=== PATIENT | male | born 1985 | race Caucasian/White ===

== ENCOUNTER 2017-09-13 18:17 | Emergency (ER) | payer MEDICAID, SELFPAY ==
[2017-09-13 18:18] VITALS: BP 122/90; PULSE 82; RESP 16; TEMP 36.7; BMI 20.7
[2017-09-13] MEDS: Fluorescein 1 MG STRIP 1 STRIP RIGHT EYE (21:56)
[2017-09-13] MEDS: Tetracaine 0.5% Ophthalmic Bottle 1 DRP RIGHT EYE (21:56)
--- NOTE | 2017-09-13 21:59 | ED.VISSUMM ---
- ER Visit Summary Date of Service: 09/13/17 Chief Complaint: Foreign body sensation, pain watering History of Present Illness: The patient is a 31 M labeled foreign body sensation in his left eye. He has had prior episodes of this in the past. He has an established relationship with the [facility]. Patient does not wear contacts or glasses. He states this occurred on Monday when it was so much when he thinks some balloon is I. He has had these symptoms for approximately 5-6 days. Physical Examination: Vital signs stable afebrile. Pupils round reactive light. Extra ocular motions are intact. There is focal injection in the left eye. It is watering. There is no discharge. No swelling. Facial swelling. No preauricular lymphadenopathy. No orbital cellulitis. Examination left eye with tetracaine and 4 seen showed an obvious left eye foreign body at 7:00 in the border of the pupil and the iris. There is also small corneal abrasion. No perforation. No signs of infection. Upper and lower lids were unremarkable. Otherwise exam unremarkable. Test Results: None Emergency Department Course and Treatment: Tetracaine instilled his left eye which gave immediate relief. I was able to remove most of the left eye foreign body which appear to be metallic like rust. Treatment Plan: We will follow-up with the [facility] tomorrow is any more foreign body to remove. Bacitracin ophthalmic ointment. Tetracaine only for 1 day for pain. Disposition: Discharge Impression: Left eye corneal abrasion and foreign body removed by ER with residual. This note was generated with thephotocloser.com dictation software. It may contain incorrect words, spelling, and punctuation that were not noted in review of the chart prior to signing ED Disposition - Plan for ED Patient: Chief Complaint: Eye Problem Referrals: Care Physician,No Primary [Primary Care Provider] -
--- NOTE | 2017-09-13 22:05 | ED.DCSUM_ITS ---
- ER Visit Summary Date of Service: 09/13/17 Chief Complaint: Foreign body sensation, pain watering History of Present Illness: The patient is a 31 M labeled foreign body sensation in his left eye. He has had prior episodes of this in the past. He has an established relationship with the [facility]. Patient does not wear contacts or glasses. He states this occurred on Monday when it was so much when he thinks some balloon is I. He has had these symptoms for approximately 5-6 days. Physical Examination: Vital signs stable afebrile. Pupils round reactive light. Extra ocular motions are intact. There is focal injection in the left eye. It is watering. There is no discharge. No swelling. Facial swelling. No preauricular lymphadenopathy. No orbital cellulitis. Examination left eye with tetracaine and 4 seen showed an obvious left eye foreign body at 7:00 in the border of the pupil and the iris. There is also small corneal abrasion. No perforation. No signs of infection. Upper and lower lids were unremarkable. Otherwise exam unremarkable. Test Results: None Emergency Department Course and Treatment: Tetracaine instilled his left eye which gave immediate relief. I was able to remove most of the left eye foreign body which appear to be metallic like rust. Treatment Plan: We will follow-up with the [facility] tomorrow is any more foreign body to remove. Bacitracin ophthalmic ointment. Tetracaine only for 1 day for pain. Disposition: Discharge Impression: Left eye corneal abrasion and foreign body removed by ER with residual. This note was generated with i-drive dictation software. It may contain incorrect words, spelling, and punctuation that were not noted in review of the chart prior to signing ED Disposition - Plan for ED Patient: Chief Complaint: Eye Problem Referrals: Care Physician,No Primary [Primary Care Provider] -
--- NOTE | 2017-09-13 22:05 | ED.DEP ---
ED Disposition - Plan for ED Patient: Disposition: Home or Assisted Living Chief Complaint: Eye Problem Instructions: ED Foreign Body Cornea Referrals: Jerrod Cardona MD [STAFF PHYSICIAN] - As soon as possible Additional Instructions: I ointment 3 times a day. Cool compresses. Sunglasses to prevent glare. Motrin and Tylenol for pain. Use eyedrops prevent pain but only for the next 24 hours. Follow-up with the [facility] tomorrow. There may be some residual rust that still needs to be removed.
[2017-09-13 22:25] VITALS: BP 131/74; PULSE 61; RESP 16; O2SAT 99
== END 2017-09-13 22:25 | disposition home or self-care (01) ==
PROVIDERS: Emergency Provider Emergency Medicine
DX: T15.02XA Foreign body in cornea, left eye, initial encounter (principal); X58.XXXA Exposure to other specified factors, initial encounter; Y93.9 Activity, unspecified; Y92.9 Unspecified place or not applicable; Y99.9 Unspecified external cause status; Z72.0 Tobacco use
CPT/HCPCS: 99283

== ENCOUNTER 2018-11-18 11:27 | Emergency (ER) | payer MEDICAID, SELFPAY ==
[2018-11-18 11:28] VITALS: BP 149/91; PULSE 108; RESP 18; TEMP 36.7; O2SAT 99; BMI 18.8
--- NOTE | 2018-11-18 12:03 | ED.VIS.GEN ---
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 neck discomfort from this, but has had no direct trauma no other complaints no headache no change in vision no neurologic abnormalities the numbness persisted he came in today for evaluation he has no history of GA PE DVT or cardiovascular disorder disease, no history of stroke or seizure Past Medical History - Allergies and Home Meds Allergies/Adverse Reactions: Allergies erythromycin base [Erythromycin Base] Adverse Reaction (Verified 11/18/18 11:30) Vomiting Primary Care Physician: Sahil Wolfe III, MD [STAFF PHYSICIAN] - Sridhar Oconnor MD [STAFF PHYSICIAN] - Care Physician,No Primary [Primary Care Provider] - Past Medical History: None Smoking Status: Heavy Smoker (>10/day) Review of Systems General: Denies: Chills, Fever, Sweats Eyes: Denies: Visual changes - bilaterally, Diplopia ENT: Denies: Rhinorrhea, Sore throat Cardiovascular: Denies: Chest pain, Palpitations Respiratory: Denies: Dyspnea, Cough, Dyspnea on exertion Gastrointestinal: Denies: Abdominal pain, Nausea, Vomiting, Diarrhea, Melena, Hematochezia Genitourinary: Denies: Dysuria, Hematuria, Frequency Musculoskeletal: Denies: Back pain, Extremity Pain Skin: Denies: Rash, Wounds Neurological: Reports: Numbness, - - Planes of numbness that radiates from the mid humeral area mostly into the thumb region. Denies: Headache, Weakness Physical Exam Vital Signs/Narrative: Vital Signs Temp Pulse Resp BP Pulse Ox 11/18/18 11:28 98.1 F 108 H 18 149/91 H 99 General: Well nourished, Well developed, No Acute Distress Head: Normocephalic, Atraumatic Eyes: Perrl, EOMI ENT: Moist mucous membranes, No rhinorrhea Neck: Supple, Nontender Cardiovascular: Regular rate, Regular rhythm, No murmurs Respiratory: No distress, CTA bilaterally, Chest nontender Abdomen: Soft, Nontender, Nondistended, Normal bowel sounds Back: Nontender, Normal Inspection Extremities: Nontender, No edema Skin: Normal color, No rash Neurological: Alert, Oriented x3, Cranial nerves II-XII grossly intact, Normal Strength, Normal Sensation, - - His neurologic exam is unremarkable the left upper extremity has normal range of motion normal strength normal sensation he subjectively complains of a numbness sensation again that begins in the mid humeral area radiates more toward the thumb side of the hand is flexion-extension and 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 order 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 thumb function finger function flexion extension wrist all normal he 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 but he does seem to have a symmetric 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 order 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 strength, neurovascular sensation is intact, pulses capillary refill normal no signs of trauma full range of motion of the extremity to all major joints no signs of any direct trauma or bruising contusion or rash Psychological: Normal affect, Normal Mood Diagnostic/Tx/Re-eval - Medical Decision Making EKG shows a sinus rhythm nothing acute and again he denies any chest pain shortness of breath anginal type symptoms or any cardiovascular symptoms or past history I had a long conversation with the patient his family I explained the differential to him including 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 Oconnor, he is referred back to his primary care physician Dr. Wolfe he will try to avoid any strenuous activity to his body or hand and return for change in symptoms and understands that he needs outpatient management for this condition Disposition Home stable Impression final Numbness involving the left upper extremity mostly radial side ED Disposition - Plan for ED Patient: Diagnosis: Paresthesia and pain of left extremity Instructions: Paraesthesias Prescriptions: Naproxen [Naprosyn] 500 mg PO BID PRN #20 tab Prescription Printed Referrals: Care Physician,No Primary [Primary Care Provider] - Sridhar Oconnor MD [STAFF PHYSICIAN] - Sahil Wolfe III, MD [STAFF PHYSICIAN] -
[2018-11-18 12:28] VITALS: PULSE 102; RESP 18; O2SAT 99
--- NOTE | 2018-11-18 12:37 | EKG12_ITS ---
Test Reason : NUMB/TING Blood Pressure : / mmHG Vent. Rate : 105 BPM Atrial Rate : 105 BPM P-R Int : 128 ms QRS Dur : 088 ms QT Int : 332 ms P-R-T Axes : 074 098 053 degrees QTc Int : 438 ms Sinus tachycardia Rightward axis Borderline ECG Confirmed by SHANE SAMPSON ([id number]), editorial writer MARTELL RAPP ([id number]) on 11/21/2018 1:49:26 PM Referred By: KEATON Confirmed By:SHANE SAMPSON
== END 2018-11-18 12:30 | disposition home or self-care (01) ==
LOC: ED 12:23
PROVIDERS: Emergency Provider Emergency Medicine
DX: R20.0 Anesthesia of skin (principal); M79.622 Pain in left upper arm; F17.200 Nicotine dependence, unspecified, uncomplicated; Z88.1 Allergy status to other antibiotic agents
CPT/HCPCS: 93005; 99282

== ENCOUNTER → 2018-12-11 06:53 | Outpatient (CLI) | payer MEDICAID, SELFPAY ==
[2018-11-18 11:28] VITALS: BMI 18.8
--- NOTE | 2018-12-11 07:20 | MRI_ITS ---
HISTORY: Pain. Left arm numbness and weakness. EXAMINATION: MR Spine Cervical W/O Contrast TECHNIQUE: Routine MRI of the cervical spine was performed. IV Contrast dosage and agent: None. COMPARISON: None FINDINGS: VERTEBRAE: Normal vertebral bodies and posterior elements. VERTEBRAL ALIGNMENT: Normal, including the craniocervical junction and cervicothoracic junction. No spondylolisthesis. There is preservation of the normal cervical lordosis. CORD: Normal signal and morphology. NECK SOFT TISSUES: No prevertebral soft tissue swelling. There is no cervical adenopathy. Normal disc height and morphology throughout the cervical spine. No spinal canal or foraminal narrowing. MRI/Spine Cervical (Routine) IMPRESSION: Normal noncontrast MRI of the cervical spine. No etiology for radiculopathy identified. at 0928 Reported and signed by: Jack Weaver MD Electronically Signed: Jack Weaver, at 9:27 EDT Tel , Service support ,
--- NOTE | 2018-12-11 07:30 | RAD_ITS ---
STUDY: X-RAY - ORBITS REASON FOR EXAM: Male, 33 years old. This study is being performed as a clearance examination for exclusion of orbital metal, prior to the performance of an MRI examination. TECHNIQUE: 2 view(s) of the orbits were obtained. COMPARISON: None. FINDINGS: Normal bilateral orbits without a metallic orbital foreign body. Normal visualized facial bones. Normal paranasal sinuses. The soft tissue structures are unremarkable. RAD/Orbits for Foreign Body IMPRESSION: No demonstrated metallic orbital foreign body. The patient is cleared for an MRI examination. Electronically Signed: Luis Noble, at 7:47 EDT , Service support ,
== END ==
PROVIDERS: Referring Provider Orthopaedic Surgery; Visit Provider Orthopaedic Surgery
DX: M54.2 Cervicalgia (principal)
CPT/HCPCS: 70030; 72141

== ENCOUNTER 2024-05-26 16:09 | Emergency (ER) | payer OTHER, MEDICAID, SELFPAY ==
[2024-05-26] VITALS (9 sets, daily range): BP systolic 145–157; BP diastolic 99–108; PULSE 77–122; RESP 9–18; TEMP 36.2–36.5; O2SAT 98–100; BMI 20.9
--- NOTE | 2024-05-26 16:22 | EX.ED.DYSGE1 ---
HPI History of Present Illness Chief Complaint: Hypertension Informant: patient and spouse/S.O. Onset/Context/Timing Onset: Weeks (1) Context: Gradual Onset Timing: Continuous Quality: Pressure Location: Head Worsened by: Stress Relieved by: Xanax Narrative Narrative: Patient presents with elevated blood pressure that has been constant for the past week. Patient states that he has had pressure in his head, pain in his chest, palpitations, and abdominal pain with this. Patient states he feels shaky at times. Patient states this gets worse with stress. Patient denies any shortness of breath or cough. Patient denies any nausea or vomiting. Patient states he did take one of his 's Xanax tablets which helped calm him down. Patient states that his symptoms returned when this wore off. Patient states he does have a history of panic attacks. [facility] Home Medications ?Medication ?Instructions ?Recorded ?Last Taken ?Type naproxen 500 mg tablet 500 mg PO BID PRN #20 tabs 11/18/18 Unknown Rx Allergy/AdvReac Type Severity Reaction Status Date / Time erythromycin base AdvReac Vomiting Verified 05/26/24 16:10 (Erythromycin Base) Surgical History no surgical history no surgical history Social History (Updated 05/26/24 @ 16:[address] José Orr, DO) Smoking Status: Current every day smoker tobacco type: e-cigarettes Electronic Cigarette Use: with nicotine alcohol intake: current alcohol intake frequency: a few times a week ROS ROS ED Constitutional Constitutional ED: Reports chills and subjective; Denies fever(s) Eyes Eyes: Denies blurry vision or change in vision ENT ENT ED: Denies rhinorrhea or sore throat Cardiovascular Cardiovascular: Reports chest pain and palpitations Respiratory/Chest Respiratory/Chest: Denies cough or dyspnea Gastrointestinal Gastrointestinal: Reports abdominal pain; Denies nausea or vomiting Genitourinary Genitourinary ED: Denies dysuria or hematuria Musculoskeletal Musculoskeletal: Reports neck pain; Denies back pain Integumentary Denies abscess or rash Neurologic Neurologic: Reports headache(s); Denies weakness Psychiatric Psychiatric: Reports anxiety Allergic/Immunologic Allergic/Immunologic ED: Denies mouth swelling or urticaria EXAM Physical Exam Const Vital Signs: 05/26/24 16:10 05/26/24 16:48 05/26/24 16:56 Temperature 97.2 F L Temperature Source Temporal Pulse Rate 122 H 97 Respiratory Rate 18 16 Respiratory Effort Normal Non-Labored Respiratory Pattern Normal Blood Pressure 157/101 H Blood Pressure Mean 119 Pulse Ox 100 99 Oxygen Delivery Method Room Air 05/26/24 17:00 05/26/24 17:09 05/26/24 17:15 Temperature Temperature Source Pulse Rate 82 93 86 Respiratory Rate 13 18 13 Respiratory Effort Respiratory Pattern Blood Pressure 156/103 H 145/108 H 152/101 H Blood Pressure Mean 119 120 117 Pulse Ox 99 99 100 Oxygen Delivery Method 05/26/24 17:15 05/26/24 17:30 05/26/24 17:45 Temperature Temperature Source Pulse Rate 87 89 Respiratory Rate 10 L 13 Respiratory Effort Respiratory Pattern Blood Pressure 152/101 H 145/108 H 154/105 H Blood Pressure Mean 117 120 118 Pulse Ox 99 98 Oxygen Delivery Method 05/26/24 18:00 Temperature Temperature Source Pulse Rate 85 Respiratory Rate 9 L Respiratory Effort Respiratory Pattern Blood Pressure 147/99 H Blood Pressure Mean 112 Pulse Ox 100 Oxygen Delivery Method Positive well nourished and well developed General Appearance ED: well developed and NAD HEENT Reports moist mucous membranes Neck supple and no JVD Resp normal respiratory effort and clear to auscultation bilaterally Cardio regular rate and regular rhythm GI non-distended Palpation: soft and tender RLQ; Negative for guarding or rebound tenderness present Extremity normal to inspection General Extremety ED: Negative for edema or tenderness General Extremity: Negative for edema Neuro oriented x3, CN's II-XII intact bilaterally and no sensory deficits noted Motor Exam: strength 5/5 throughout Psych mental status grossly normal MDM MDM MDM Narrative Medical decision making narrative: Differential diagnosis includes hypertension, anxiety, cardiac dysrhythmia, cardiac ischemia, electrolyte abnormality, and pneumonia. EKG will be obtained to assess for cardiac dysrhythmia and cardiac ischemia. Chest x-ray will be obtained to assess for pneumonia and pneumothorax. CBC will be obtained to assess for leukocytosis and anemia. Basic metabolic profile will be obtained to assess for electrolyte abnormality and renal function. High-sensitivity troponin will be obtained to assess for cardiac ischemia. Lab Data Attestation: I reviewed the patient's lab results. Lab results narrative: CBC was reviewed and was within normal limits. Basic metabolic profile was reviewed and was within normal limits. High-sensitivity troponin was reviewed and was normal. COVID-19 PCR was reviewed and was negative. Influenza PCR was reviewed and was negative for influenza A and influenza B. RSV PCR was reviewed and was negative. Labs: Laboratory Results - last 24 hr 05/26/24 16:44 WBC 8.2 RBC 4.44 L Hgb 13.5 Hct 40.5 MCV 91.2 MCH 30.4 MCHC 33.3 RDW Std Deviation 40.1 RDW Coeff of Jennifer 11.9 Plt Count 364 MPV 9.3 Immature Gran % (Auto) 0.200 Neut % (Auto) 61.6 Lymph % (Auto) 27.0 Sabine % (Auto) 7.3 Eos % (Auto) 2.9 Baso % (Auto) 1.0 Absolute Neuts (auto) 5.1 Absolute Lymphs (auto) 2.22 Nucleated RBC % 0 Sodium 136 Potassium 3.9 Chloride 102 Carbon Dioxide 27.0 Anion Gap 7 BUN 16 Creatinine 0.74 Estim Creat Clear Calc 133.36 Est GFR (MDRD) Af Amer 150 Est GFR (MDRD) Non-Af 124 BUN/Creatinine Ratio 21.5 H Glucose 106 Calcium 9.3 Troponin I High Sens 8 Radiography Chest X-Ray - ED: 2 View, Read by ED Physician, Read by Radiologist and No Acute Disease Diagnostic Testing: Clinical Impression(s) from Imaging Studies Chest X-Ray 05/26/24 17:20 IMPRESSION: No radiographic evidence of acute cardiopulmonary disease. Electronically Signed: Esteban Philippe MD at 17:37 EST Reading Location ID and State: [facility] / [place] , Service support , [place] and lateral chest x-ray was obtained. There are 2 views. On my independent interpretation, lung ch are clear. There is normal cardiac silhouette. Bony thorax is normal. There is no acute process noted. Radiologist also interpreted the x-ray and agrees. EKG Initial EKG: Attestation: I personally reviewed and interpreted this EKG as follows: Interpretation: Sinus Rhythm (88) and No Acute Injury Pattern Comments: EKG was obtained. On my independent interpretation, it showed a normal sinus rhythm with a rate of 88. IN interval, QRS interval, and QTc intervals were all normal. [place] was normal. There are no acute ST or T wave changes. Prior EKG tracings: available for review Prior: Unchanged (11/18/2018) Treatment and Re-Evaluation :: Nicotine cessation was discussed. Patient was advised of his findings. Patient has a HEART score of 1. Patient was advised that this is low risk for acute cardiac event. Patient's blood pressure improved to 147/99. Patient was advised to continue to monitor his blood pressure at home. Patient was instructed to take his log of blood pressures to his primary care physician. Patient was instructed to drink plenty of fluids. Patient was instructed to avoid extra salt. Patient was instructed to return if worse in any way. Patient understood and was agreeable with the plan. All questions were answered. Discharge Plan Triage Chief Complaint: Hypertension Other Complaint: Chest Pain ED Provider: José Orr Dx/Rx/DC Orders Clinical Impression: Elevated blood pressure reading without diagnosis of hypertension, Nicotine vapor product user Instructions: ED Hypertension, To Be Confirmed Prescriptions: No Action naproxen 500 MG tablet 500 mg PO BID PRN Qty: 20 0RF Primary Care Provider: Care Physician,No Primary Referrals: Cameron Tripp DO [Med Staff - Tenant Relations Coordinator] - 3-5 Days Care Physician,No Primary [Primary Care Provider] - Print Language: Qatari Disposition Disposition: Home, Self Care
--- NOTE | 2024-05-26 16:28 | EKG12_ITS ---
Test Reason : Blood Pressure : */* mmHG Vent. Rate : 88 BPM Atrial Rate : 88 BPM P-R Int : 132 ms QRS Dur : 88 ms QT Int : 348 ms P-R-T Axes : 71 87 68 degrees QTcB Int : 421 ms Normal sinus rhythm Normal ECG Confirmed by JUNI GATES, STORMY ([id number]), associate entertainment editor SAMANTHA JOHNSTON ([id number]) on 05/27/2024 11:05:30 AM Referred By: Confirmed By: STORMY ALFREDO MD
[2024-05-26 16:58] LABS: Absolute Lymphocyte Count 2.22 X10^3/uL (0.83-4.51); Absolute Neutrophil Count 5.1 X10^3/uL (2.0-7.7); Basophil# 0.08 X10^3/uL; Eosinophil# 0.24 X10^3/uL; Eosinophils% 2.9 % (0-5); Hematocrit 40.5 % (40-54); Hemoglobin 13.5 g/dL (13.0-16.5); Lymphocyte # 2.22 X10^3/ul (0.83-4.51); Mean Corp Hgb Conc 33.3 g/dL (32-36); Mean Corpuscular Hgb 30.4 pg (27.0-32.0); Mean Corpuscular Volume 91.2 fL (80-94); Mean Platelet Vol. 9.3 fl (6.2-12.0); Monocyte% 7.3 % (0-10); NRBC Flagged by Analyzer 0 % (0-5); Neutrophil # 5.07 X10^3/uL (2.7-7.7); Neutrophil % 61.6 % (47-70); Platelet Count 364 K/mm3 (150-450); RBC Distribution Width CV 11.9 % (11.6-14.6); RBC Distribution Width SD 40.1 fl (35.1-43.9); Red Blood Count 4.44 M/mm3 (4.6-6.2); White Blood Count 8.2 K/mm3 (4.4-11.0)
--- NOTE | 2024-05-26 17:20 | RAD_ITS ---
EXAM: XR CHEST, 2 VIEWS CLINICAL INDICATION: Hypertension TECHNIQUE: Frontal and lateral views of the chest. COMPARISON: No relevant prior studies available. FINDINGS: LUNGS AND PLEURAL SPACES: Unremarkable. No consolidation or edema. No pneumothorax. No effusion. HEART: Unremarkable. Cardiac silhouette not enlarged. MEDIASTINUM: Central airways and mediastinal contour are unremarkable. BONES/JOINTS: Unremarkable. No acute fracture. SOFT TISSUES: Unremarkable. RAD/Chest PA and Lateral IMPRESSION: No radiographic evidence of acute cardiopulmonary disease. Electronically Signed: Esteban Philippe MD at 17:37 EST ,
[2024-05-26 17:21] LABS: Anion Gap 7 (5-15); BUN 16 mg/dL (7-18); BUN/Creat Ratio 21.5 RATIO (10-20); Calcium,Total 9.3 mg/dL (8.5-10.1); Chloride 102 mmol/L (98-107); Creatinine, Serum 0.74 mg/dL (0.70-1.30); EST Glomerular Filtration Rate 124 mL/min (>60); Est Glom Filt Rate - Afr Amer 150 mL/min (>60); Estimated Creatinine Clearance 133.36 ml/min; Glucose 106 mg/dL (74-106); Potassium 3.9 mmol/L (3.5-5.1); Sodium Level 136 mmol/L (136-145); Troponin-I HS 8 pg/mL (3.0-78.0)
== END 2024-05-26 18:16 | disposition home or self-care (01) ==
PROVIDERS: Emergency Provider Emergency Medicine; Visit Provider Emergency Medicine
DX: R03.0 Elevated blood-pressure reading, without diagnosis of hypertension (principal); Z11.52 Encounter for screening for COVID-19; R10.9 Unspecified abdominal pain; M54.2 Cervicalgia; R00.2 Palpitations; R51.9 Headache, unspecified; F17.290 Nicotine dependence, other tobacco product, uncomplicated
CPT/HCPCS: 71046; 80048; 84484; 85025; 87631; 93005; 99284; A4216

== ENCOUNTER → 2024-06-03 | Outpatient (CLI) | payer OTHER, SELFPAY ==
[2024-06-03 08:57] LABS: Absolute Lymphocyte Count 1.65 X10^3/uL (0.83-4.51); Basophil# 0.06 X10^3/uL; Basophil% 1.1 % (0-1); Eosinophils% 3.6 % (0-5); Hematocrit 42.1 % (40-54); Hemoglobin 14.2 g/dL (13.0-16.5); Lymphocyte # 1.65 X10^3/ul (0.83-4.51); Lymphocyte % 29.4 % (19-41); Mean Corp Hgb Conc 33.7 g/dL (32-36); Mean Corpuscular Hgb 30.8 pg (27.0-32.0); Mean Corpuscular Volume 91.3 fL (80-94); Mean Platelet Vol. 9.3 fl (6.2-12.0); Monocyte# 0.66 X10^3/uL; Monocyte% 11.7 % (0-10); NRBC Flagged by Analyzer 0 % (0-5); Neutrophil # 3.03 X10^3/uL (2.7-7.7); Neutrophil % 53.8 % (47-70); Platelet Count 423 K/mm3 (150-450); RBC Distribution Width CV 11.9 % (11.6-14.6); RBC Distribution Width SD 39.9 fl (35.1-43.9); Red Blood Count 4.61 M/mm3 (4.6-6.2); White Blood Count 5.6 K/mm3 (4.4-11.0)
[2024-06-03 09:21] LABS: Vitamin B12 804 pg/mL (211-911)
[2024-06-03 09:25] LABS: Anion Gap 6 (5-15); BUN 12 mg/dL (7-18); BUN/Creat Ratio 12.1 RATIO (10-20); Calcium,Total 9.2 mg/dL (8.5-10.1); Chloride 103 mmol/L (98-107); Creatinine, Serum 0.99 mg/dL (0.70-1.30); EST Glomerular Filtration Rate 89 mL/min (>60); Est Glom Filt Rate - Afr Amer 108 mL/min (>60); Glucose 108 mg/dL (74-106); Potassium 4.4 mmol/L (3.5-5.1); Sodium Level 134 mmol/L (136-145); Thyroid Stim Hormone (TSH) 0.638 uIU/mL (0.358-3.740)
== END | disposition home or self-care (01) ==
LOC: LAB 08:30
PROVIDERS: PCP Clinical Nurse Specialist Adult Health; Referring Provider Clinical Nurse Specialist Adult Health; Visit Provider Clinical Nurse Specialist Adult Health
DX: R00.0 Tachycardia, unspecified (principal)
CPT/HCPCS: 36415; 80048; 82607; 83036; 83735; 84439; 84443; 85025

== ENCOUNTER → 2025-03-13 | Outpatient (CLI) | payer OTHER, SELFPAY ==
--- NOTE | 2025-03-13 12:09 | ECHOD_ITS ---
Reason For Study Reason For Study: SOB/PALPITATIONS Procedure This was a 2D Doppler, Color Flow transthoracic echocardiogram. The study was technically difficult. Exam performed in department. Left Ventricle Normal LV size. Left ventricular systolic function is normal. The left ventricular ejection fraction is 60 %. No regional wall motion abnormalities noted. Right Ventricle Normal RV size. Normal systolic function. Atria Normal left atrium. Normal right atrium. Mitral Valve Normal mitral valve. Tricuspid Valve Normal tricuspid valve. Aortic Valve Normal aortic valve. Trisinus/trileaflet aortic valve. Pulmonic Valve Normal pulmonic valve. Great Vessels Normal aortic root. The pulmonary artery is normal size. Inferior vena cava collapse with respiration. Pericardium/Pleural No pericardial effusion. MMode/2D Measurements & Calculations LVIDd: 4.7 cm IVSd: 0.85 cm Ao root diam: 2.8 cm LVIDs: 2.8 cm LVPWd: 0.82 cm RVDd: 3.6 cm FS: 39.5 % LAV(MOD-bp): 45.3 ml LVAd ap4: 31.6 cm2 SV(MOD-sp4): 55.7 ml LAV(MOD-bp) Indexed: 23.5 ml/m2 LVLd ap4: 8.8 cm SI(MOD-sp4): 28.8 ml/m2 LAV(MOD-sp2): 45.0 ml EDV(MOD-sp4): 92.3 ml LAV(MOD-sp4): 45.3 ml EDV(sp4-el): 96.0 ml LVAs ap4: 17.7 cm2 LVLs ap4: 7.0 cm ESV(MOD-sp4): 36.6 ml ESV(sp4-el): 38.1 ml EF(MOD-sp4): 60.3 % EF(sp4-el): 60.4 % SV(sp4-el): 58.0 ml LA A4 area: 17.3 cm2 LA dimension(2D): 3.2 cm RA A4 area: 18.7 cm2 TAPSE: 2.1 cm Time Measurements MV dec time: 0.21 sec Doppler Measurements & Calculations MV E max leo: 70.6 cm/sec Lat Peak E' Leo: 17.7 cm/sec Med Peak E' Leo: 12.9 cm/sec MV A max leo: 40.0 cm/sec E/E' lat: 4.0 E/E' med: 5.5 MV E/A: 1.8 MV V2 max: 77.4 cm/sec MV P1/2t max leo: 79.6 cm/sec Ao V2 max: 147.4 cm/sec MV max P.4 mmHg MV P1/2t: 78.3 msec Ao max P.7 mmHg MV V2 mean: 39.0 cm/sec Ao V2 mean: 97.1 cm/sec MV mean P.72 mmHg MV dec slope: 298.0 cm/sec2 Ao mean P.4 mmHg MV V2 VTI: 25.5 cm MVA(P1/2t): 2.8 cm2 Ao V2 VTI: 31.2 cm AV (velocity ratio): 0.86 LV V1 max: 124.7 cm/sec PA V2 max: 122.5 cm/sec TR max leo: 216.8 cm/sec LV V1 max P.2 mmHg TR max P.8 mmHg LV V1 mean P.2 mmHg LV V1 mean: 82.7 cm/sec LV V1 VTI: 26.8 cm ECHO/Echo Complete Interpretation Summary Normal LV size. Left ventricular systolic function is normal. The left ventricular ejection fraction is 60 %. Structurally normal valves. Ordering Physician: Makayla Tripp Referring Physician: Makayla Tripp Performed By: Darlene Sorensen, RDCS, RVT
--- NOTE | 2025-03-13 13:18 | STRESSREP ---
Stress Test Report Exercise stress test. 39-year-old man with a history of chest pain. Stress protocol: Resting EKG demonstrates normal sinus rhythm with a rate of 50 bpm resting blood pressure is 126/82 mmHg. The patient exercised according to the regular Diaz protocol for a total duration of 8 minutes attaining a maximum heart rate of 125 bpm which was 69% of maximum predicted heart rate; the maximum workload was 10.1 metabolic equivalents. At rest there were no ST or T wave changes noted to suggest ischemia and at peak exercise upsloping ST changes only were noted which did not meet the criteria for ischemia. No clinical angina was noted the test was terminated due to the target heart rate being achieved/fatigue. The peak blood pressure was 160/70 mmHg. Rate-pressure product was 19,300. Conclusion: Exercise stress test with no EKG criteria for ischemia at a high workload. No arrhythmias noted.
== END | disposition home or self-care (01) ==
LOC: CVS 12:08
PROVIDERS: PCP Nurse Practitioner Family; Referring Provider Nurse Practitioner Family; Visit Provider Nurse Practitioner Family
DX: R07.89 Other chest pain (principal); R00.2 Palpitations; R00.0 Tachycardia, unspecified; R06.02 Shortness of breath; I10 Essential (primary) hypertension
CPT/HCPCS: 93017; 93306

== ENCOUNTER → 2025-04-08 | Outpatient (CLI) | payer OTHER, SELFPAY ==
--- NOTE | 2025-04-08 10:50 | US_ITS ---
PROCEDURE: ABDOMEN LIMITED 04/08/2025 REASON FOR EXAM: ABD BLOATING Epigastric pain. TECHNIQUE: Procedure Code: USABDL Modality: US Procedure: ABDOMEN LIMITED COMPARISON: None FINDINGS: Liver: Grossly normal size and echotexture. The liver measures 17.4 cm. Gallbladder: Sludge is seen within the gallbladder lumen. The gallbladder wall is not thickened. Common bile duct: Normal measuring 3.5 mm . Pancreas: Normal Other: Visualized portions of the right kidney are unremarkable. No right upper quadrant ascites. US/Abdomen Limited IMPRESSION: Borderline hepatomegaly. Normal hepatic echotexture. Reading Location: [id number]
== END | disposition home or self-care (01) ==
PROVIDERS: PCP Nurse Practitioner Family; Referring Provider Nurse Practitioner Family; Visit Provider Nurse Practitioner Family
DX: R14.0 Abdominal distension (gaseous) (principal); K52.9 Noninfective gastroenteritis and colitis, unspecified; R63.0 Anorexia; K21.00 Gastro-esophageal reflux disease with esophagitis, without bleeding; K90.49 Malabsorption due to intolerance, not elsewhere classified; R68.81 Early satiety; R10.13 Epigastric pain
CPT/HCPCS: 36415; 76705

== ENCOUNTER → 2025-04-22 | Outpatient (CLI) | payer OTHER, SELFPAY ==
--- NOTE | 2025-04-22 12:33 | NM_ITS ---
PROCEDURE: HEPATOBILLIARY IMG W/PHARM INT 04/22/2025 REASON FOR EXAM: RUQ ABDOMINAL PAIN TECHNIQUE: Procedure Code: [id number] Modality: NM Procedure: HEPATOBILLIARY IMG W/PHARM INT, with gallbladder ejection fraction Intravenous Choletec with planar imaging of the abdomen. RADIOPHARMACEUTICAL: Intravenous administration 5.7 mCi technetium 99 M mebrofenin. For the gallbladder ejection fraction component, intravenous administration of 1.5 ugm cholecystokinin over 15 minutes. COMPARISON: Ultrasound exam of 04/08/2025. FINDINGS: Satisfactory hepatic uptake and excretion is seen.. Normal gallbladder visualization with the gallbladder identified by 10 minutes. Small bowel activity is seen by the 30 minute timeframe. A normal gallbladder ejection fraction of 100% was calculated at the 31 minute timeframe. NM/Hepatobilliary Img w/Pharm Int IMPRESSION: 1. Normal gallbladder ejection fraction of 100%. 2. Negative hepatobiliary scan. Reading Location: [id number]
== END | disposition home or self-care (01) ==
LOC: NM 12:31
PROVIDERS: PCP Nurse Practitioner Family; Referring Provider Nurse Practitioner Family; Visit Provider Nurse Practitioner Family
DX: R10.11 Right upper quadrant pain (principal); R14.0 Abdominal distension (gaseous); K52.9 Noninfective gastroenteritis and colitis, unspecified; R10.9 Unspecified abdominal pain; R63.0 Anorexia; K21.00 Gastro-esophageal reflux disease with esophagitis, without bleeding; K90.49 Malabsorption due to intolerance, not elsewhere classified; R68.81 Early satiety; R10.13 Epigastric pain
CPT/HCPCS: 78227; A9537; J2805